=== PATIENT | male | born 1995 | race African-American/Black ===

== ENCOUNTER 2017-08-15 13:45 | Emergency (ER) | payer MEDICAID, OTHER ==
[~2017-08-15] VITALS: Ht 190.5 cm; Wt 100.0 kg
[2017-08-15 14:12] VITALS: BP 134/82
== END 2017-08-15 17:06 | disposition left against medical advice (07) ==
LOC: ER 14:54
DX: M25.572 Pain in left ankle and joints of left foot (principal); Z53.21 Procedure and treatment not carried out due to patient leaving prior to being seen by health care provider

== ENCOUNTER 2017-08-18 09:01 | Emergency (ER) | payer MEDICAID ==
[~2017-08-18] VITALS: Ht 190.5 cm; Wt 100.0 kg
[2017-08-18] MEDS ORDERED: IBUPROFEN 600MG TABLET PO ONE (10:45)
[2017-08-18 13:05] VITALS: BP 122/69
== END 2017-08-18 13:20 | disposition home or self-care (01) ==
LOC: ER 09:18
DX: M25.572 Pain in left ankle and joints of left foot (principal)
CPT/HCPCS: 73610; 99284; Z7610